=== PATIENT | male | born 1945 | race Caucasian/White ===

== ENCOUNTER 2017-03-13 20:21 | Inpatient (IN) | payer MEDICARE, OTHER ==
[~2017-03-13] VITALS: Ht 175.3 cm; Wt 90.9 kg
[2017-03-13 20:44] LABS: HEMOGLOBIN 13.7 gm/dl (14.0-17.5); RED BLOOD COUNT 4.52 M/UL (4.20-5.50); WHITE BLOOD COUNT 8.7 K/UL (4.5-11.0)
[2017-03-14] MEDS ORDERED: LIPITOR TAB 2020 MG PO (01:37)
[2017-03-14] MEDS ORDERED: FENOFIBRATE160 MG PO (01:37)
[2017-03-14] MEDS ORDERED: LEVOTHYROXINE75 MCG PO (01:38)
[2017-03-14] MEDS ORDERED: FLOMAX 0.4 MG0.4 MG PO (01:38)
[2017-03-14] MEDS ORDERED: RANITIDINE HCL150 M1 PO (01:39)
[2017-03-14] MEDS ORDERED: FISH OIL 1,0001 EACH PO (01:39)
[2017-03-14] MEDS ORDERED: ASPIRIN81 MG PO (01:40)
[2017-03-14] MEDS ORDERED: ZANTAC 150 MG150 MG PO (01:41)
[2017-03-15 03:54] LABS: HEMOGLOBIN 14.4 gm/dl (14.0-17.5); RED BLOOD COUNT 4.78 M/UL (4.20-5.50); WHITE BLOOD COUNT 8.4 K/UL (4.5-11.0)
[2017-03-16 04:09] LABS: HEMOGLOBIN 14.1 gm/dl (14.0-17.5); RED BLOOD COUNT 4.69 M/UL (4.20-5.50); WHITE BLOOD COUNT 8.8 K/UL (4.5-11.0)
[2017-03-16] MEDS ORDERED: IMDUR ER TAB 3030 MG PO ×2 (11:41→12:32)
[2017-03-16] MEDS ORDERED: NITROSTAT0.4 MG SL (11:44)
[2017-03-16] MEDS ORDERED: CARDIZEM120 MG PO (12:10)
[2017-03-16] MEDS ORDERED: FLONASE 0.05% N16 GM (12:12)
[2017-03-16] MEDS ORDERED: COZAAR100 MG PO (12:13)
[2017-03-16] MEDS ORDERED: METOPROLOL SUC100 MG PO (12:14)
[2017-03-16] MEDS ORDERED: NOVOLOG MI100 UNIT/2 SQ (12:15)
== END 2017-03-16 13:00 | disposition home or self-care (01) | DRG 291 ==
LOC: ER1 20:21 → PROG CARE 23:00 → ZEROF 23:00 → PROG CARE 23:00
PROVIDERS: Internal Medicine; Student in an Organized Health Care Education/Training Program; ADMIT Internal Medicine
PROC: 5A09357 Assistance with Respiratory Ventilation, Less than 24 Consecutive Hours, Continuous Positive Airway Pressure (ICD-10-PCS; principal; 2017-03-14)
DX: I13.0 Hypertensive heart and chronic kidney disease with heart failure and stage 1 through stage 4 chronic kidney disease, or unspecified chronic kidney disease (principal); I50.33 Acute on chronic diastolic (congestive) heart failure; J96.01 Acute respiratory failure with hypoxia; N17.9 Acute kidney failure, unspecified; E11.22 Type 2 diabetes mellitus with diabetic chronic kidney disease; E11.65 Type 2 diabetes mellitus with hyperglycemia; N18.3 Chronic kidney disease, stage 3 (moderate); I48.2 Chronic atrial fibrillation; R00.1 Bradycardia, unspecified; T44.7X5A Adverse effect of beta-adrenoreceptor antagonists, initial encounter; T46.1X5A Adverse effect of calcium-channel blockers, initial encounter; I27.2 Other secondary pulmonary hypertension; I25.10 Atherosclerotic heart disease of native coronary artery without angina pectoris; E03.9 Hypothyroidism, unspecified; E78.5 Hyperlipidemia, unspecified; I34.0 Nonrheumatic mitral (valve) insufficiency; N40.0 Benign prostatic hyperplasia without lower urinary tract symptoms; Z95.5 Presence of coronary angioplasty implant and graft; Z86.73 Personal history of transient ischemic attack (TIA), and cerebral infarction without residual deficits; Z87.442 Personal history of urinary calculi; Z79.4 Long term (current) use of insulin; Z79.84 Long term (current) use of oral hypoglycemic drugs; Z79.82 Long term (current) use of aspirin; Z79.899 Other long term (current) drug therapy; Z88.5 Allergy status to narcotic agent; Z91.041 Radiographic dye allergy status; Z98.890 Other specified postprocedural states; Z82.49 Family history of ischemic heart disease and other diseases of the circulatory system
CPT/HCPCS: ECHO; 36415; 36600; 71010; 80048; 80053; 81001; 82550; 82553; 82803; 82962; 83874; 83880; 84439; 84443; 84484; 85025; 85027; 85610; 85730; 87086; 93005; 93270; 93306; 94660; 96365; 96372; 96375; 99291; G0378; J0461; J0610; J1815; J1817; J1940; J2270